=== PATIENT | male | born 1930 | race Caucasian/White ===

== ENCOUNTER → 2017-09-06 | Outpatient (CLI) | payer MEDICARE, OTHER ==
[~2017-09-06] MED LIST: ACET325T21 PO; ASPI-482 PO; BUPIVACAINE MPF 0.25% 10 ML VIAL. ONE; CALC500T30 PO; FINA5TAB4 PO; FISH1CAP PO; GLIP5TAB10 PO; GLUC100018 PO; LIDOCAINE 1% PF 30 ML VIAL. ONE; LOVA20TA2 PO; MAGN420T PO; MULT-18 PO; NIFE20CA PO; OMEP20TA8 PO; TERA10CA3 PO; TRIA1CAP3 PO; VALS160T3 PO; WARF-31 PO; methylPREDNISolone ACETATE 40 MG/ML VIAL. ONE
== END | disposition home or self-care (01) ==
LOC: SURG 10:41
PROVIDERS: ATTEND Anesthesiology
DX: M47.816 Spondylosis without myelopathy or radiculopathy, lumbar region (principal); G89.29 Other chronic pain; Z95.0 Presence of cardiac pacemaker; E11.9 Type 2 diabetes mellitus without complications; Z79.84 Long term (current) use of oral hypoglycemic drugs
CPT/HCPCS: 64493; 64494; J1030; J2001; J3490

== ENCOUNTER → 2017-10-11 | Outpatient (CLI) | payer MEDICARE, OTHER | LOC: SURG 11:01 | PROVIDERS: ATTEND Anesthesiology | DX: M46.1 Sacroiliitis, not elsewhere classified (principal); M53.3 Sacrococcygeal disorders, not elsewhere classified; E11.9 Type 2 diabetes mellitus without complications; Z95.0 Presence of cardiac pacemaker | CPT/HCPCS: 27096; J1030; J2001; J3490 ==